=== PATIENT | male | born 1960 | race African-American/Black ===

== ENCOUNTER 2018-01-26 21:48 | Emergency (ER) | payer MEDICARE, MEDICAID ==
[~2018-01-26] VITALS: Ht 193 cm; Wt 100.0 kg
[2018-01-26 23:32] LABS: BASOPHILS % 2.1 % (0.0-2.0); EOSINOPHILS % 3.4 % (0.0-5.0); HEMATOCRIT. 32.8 % (42.0-52.0); HEMOGLOBIN. 10.8 g/dL (14.0-18.0); LYMPHOCYTES % 21.8 % (20.0-50.0); MEAN CORPUSCULAR HEMOGLOBIN 28.7 pg (28.0-32.0); MEAN CORPUSCULAR VOLUME 87.3 fL (80.0-94.0); MONOCYTES % 8.1 % (2.0-8.0); NEUTROPHILS % 64.6 % (40.0-76.0); PLATELET 308 x1000/uL (130-400); RED BLOOD CELL COUNT 3.76 mill/uL (4.7-6.1); RED CELL DISTRIBUTION WIDTH 17.9 % (11.6-14.6)
[2018-01-26 23:38] LABS: CHLORIDE 109 mEq/L (98-107)
[2018-01-26 23:44] LABS: INR 1.1; PARTIAL THROMBOPLASTIN TIME 24.5 sec (23.4-31.0); PROTHROMBIN TIME 11.7 sec (9.4-11.6)
[2018-01-26 23:59] LABS: ETHANOL BLOOD 267 mg/dL
[2018-01-27 03:45] VITALS: BP 107/78
== END 2018-01-27 04:17 | disposition home or self-care (01) ==
LOC: ER 22:42
DX: S02.81XA Fracture of other specified skull and facial bones, right side, initial encounter for closed fracture (principal); F10.129 Alcohol abuse with intoxication, unspecified; I10 Essential (primary) hypertension; W01.0XXA Fall on same level from slipping, tripping and stumbling without subsequent striking against object, initial encounter; Y93.89 Activity, other specified; Y92.89 Other specified places as the place of occurrence of the external cause; Y99.8 Other external cause status
CPT/HCPCS: 36415; 51702; 70450; 70486; 72125; 80053; 85025; 85610; 85730; 99285; G0482